=== PATIENT | female | born 1965 | race Caucasian/White ===

== ENCOUNTER 2021-03-22 09:02 | Day surgery (SDC) | payer MEDICAID, SELFPAY ==
[~2021-03-22] VITALS: Ht 162.6 cm; Wt 71.7 kg
[2021-03-22] MEDS ORDERED: LIDOCAINE 2% 100 MG/5 ML UJET TP ONE ×2 (11:12→11:35)
[2021-03-22] MEDS ORDERED: fentaNYL citrate 0.05 MG/ML VIAL ONE (11:12)
[2021-03-22] MEDS ORDERED: fentaNYL citrate 0.05 MG/ML VIAL IVP ONE (11:35)
== END 2021-03-22 12:10 | disposition home or self-care (01) ==
LOC: MMU 09:02 → MDS 09:02
PROVIDERS: ATTEND Internal Medicine Gastroenterology
DX: Z12.11 Encounter for screening for malignant neoplasm of colon (principal); D12.5 Benign neoplasm of sigmoid colon; Z79.899 Other long term (current) drug therapy; Z20.822 Contact with and (suspected) exposure to COVID-19
CPT/HCPCS: 45385; J3010; U0003